=== PATIENT | male | born 1935 | race Caucasian/White ===

== ENCOUNTER 2017-01-13 07:23 | Day surgery (SDC) | payer OTHER, MEDICARE ==
[~2017-01-13 07:23] MED LIST: ceFAZolin 2 GM/DEXTROSE 100 ML IV ONE
[2017-01-13 08:24] VITALS: PULSE 54
[2017-01-13] MEDS ORDERED: LR 1,000 ML IV ONE (08:24)
--- NOTE | 2017-01-13 08:41 | PDGENHP ---
History and Physical History and Physical: HPI: 81 y/o male with metastatic esophageal CA. Planning chemotherapy/trial. Presents for port placement PMHx: EREN, elevated lipids, CAD PSHx: Umb, IHR Meds: Flonase, omeprazole, propranolol PE: Alert, NAD RRR CTA B Abd soft, NTTP A/P: metastatic esophageal CA. Plan port placement, risks/benefits reviewed, questions answered.
--- NOTE | 2017-01-13 08:53 | PDANEPAE ---
ANE History of Present Illness Mr. Savage is a 81 year old male with PMH significant for well controlled HTN on propanolol, HLD, and newly diagnosed esophageal cancer. He has had multiple anesthetics without complications. ANE Past Medical History - Cardiovascular History Hx Hypertension: No Hx Arrhythmias: Yes Hx Chest Pain: No Hx Coronary Artery / Peripheral Vascular Disease: Yes Hx CHF / Valvular Disease: No Hx Palpitations: No - Pulmonary History Hx COPD: No Hx Asthma/Reactive Airway Disease: No Hx Recent Upper Respiratory Infection: No Hx Oxygen in Use at Home: No - Neurologic History Hx Cerebrovascular Accident: No Hx Seizures: No Hx Dementia: No - Endocrine History Hx Diabetes: No - Renal History Hx Renal Disorders: No - Liver History Hx Hepatic Disorders: No - Neurological & Psychiatric Hx Hx Neurological and Psychiatric Disorders: No - Cancer History Hx Cancer: Yes - Congenital Disorder History Hx Congenital Disorders: No - GI History Hx Gastrointestinal Disorders: Yes - Chronic Pain History Chronic Pain: No ANE Review of Systems - Exercise capacity METS (RN): 6 METS ANE Patient History - Allergies Allergies/Adverse Reactions: No Known Allergies Allergy (Unverified 05/21/11 14:18) - Home Medications Home Medications: Atorvastatin Calcium 01/12/17 [Last Taken 01/12/17 21:00] Bystolic 5 mg (*) 01/12/17 [Last Taken 04/12/14] Flonase Nasal [place] 01/12/17 [Last Taken 01/11/17 08:00] Herbals/Supplements -Info Only 01/12/17 [Last Taken 01/12/17 22:00] Omeprazole 01/12/17 [Last Taken 01/12/17 05:30] Propranolol HCl 01/12/17 [Last Taken 01/12/17 10:00] - NPO status NPO Since - Liquids (Date): 01/12/17 NPO Since - Liquids (Time): 22:00 NPO Since - Solids (Date): 01/12/17 NPO Since - Solids (Time): 20:00 - Smoking Hx Smoking Status: Former smoker - Family Anes Hx Family Hx Anesthesia Complications: NEG ANE Labs/Vital Signs - Vital Signs Blood Pressure: 135/75 Heart Rate: 54 Respiratory Rate: 15 O2 Sat (%): 96 Height: 177.8 cm Weight: 86.183 kg ANE Physical Exam - Airway Neck exam: FROM Mallampati Score: Class 1 Mouth exam: normal dental/mouth exam - Pulmonary Pulmonary: no respiratory distress - Cardiovascular Cardiovascular: regular rate and rhythym - ASA Status ASA Status: II ANE Anesthesia Plan Anesthesia Plan: MAC Urgent/Emergent Case: Rajiv davis completed preop but documented later for safe timely pt care
[2017-01-13] MEDS ORDERED: PROPOFOL/EMULSION 500 MG/50 ML BOTTLE IV ONE (08:55)
[2017-01-13] MEDS ORDERED: fentaNYL 100 MCG/2 ML INJ ONE (08:55)
[2017-01-13] MEDS ORDERED: KETAMINE 100 MG/10 ML SYR ONE (08:55)
[2017-01-13] MEDS ORDERED: BUPIVACAINE 0.5% 30 ML SDV ONE (09:18)
[2017-01-13] MEDS ORDERED: LIDOCAINE 1% 300 MG/30 ML SDV ONE (09:18)
[2017-01-13] MEDS ORDERED: HEPARIN 10,000 UNIT/10 ML MDV ONE (09:26)
[2017-01-13] MEDS ORDERED: HEPARIN 1000 UNIT/1 ML MDV ONE (09:29)
[2017-01-13] MEDS ORDERED: LR 500 ML IV PRN (09:34)
[2017-01-13] MEDS ORDERED: ONDANSETRON 4 MG/2 ML VIAL IVP PRN (09:34)
[2017-01-13] MEDS ORDERED: NALOXONE HCL 0.4 MG/ML INJ IVP PRN (09:34)
[2017-01-13] MEDS ORDERED: fentaNYL 100 MCG/2 ML INJ IVP PRN (09:34)
[2017-01-13] MEDS ORDERED: MEPERIDINE 25 MG/ML SYR IVP PRN (09:34)
[2017-01-13] MEDS ORDERED: OXYCODONE/APAP 5/325 TAB PO PRN (09:34)
[2017-01-13] MEDS ORDERED: DEXAMETHASONE 4 MG/ML VIAL IVP PRN (09:34)
--- NOTE | 2017-01-13 10:01 | POSTOPPROG ---
Post Op Note Date of Operation: 01/13/17 Surgeon: Alexx Braun Anesthesiologist: Dr. Ricketts Anesthesia: IV Sedation Pre-op Diagnosis: Esophageal CA Post-op Diagnosis: same Procedure: Portacath Inf/Abcess present in the surg proc area at time of surgery?: No EBL: Minimal
--- NOTE | 2017-01-13 10:12 | POSTANESTH ---
Post Anesthetic Evaluation Cardiovascular Status: Normal, Stable Respiratory Status: Normal, Stable Level of Consciousness/Mental Status: Can Participate in Eval Pain Control: Adequate, Prn Tx Ordered Nausea/Vomiting Control: Adequate, Prn Tx Ordered Complications Possibly Related to Anesthesia: None Noted
[2017-01-13 11:26] VITALS: TEMP 97.5
[2017-01-13 12:26] VITALS: RESP 17
[2017-01-13 12:38] VITALS: BP 133/78; O2SAT 95
--- NOTE | 2017-01-13 16:57 | GOP ---
[f rep st] OPERATIVE REPORT DATE OF OPERATION: 01/13/2017 SURGEON: Chuy Braun MD ANESTHESIA: Monitored anesthetic care by Dr. Lane. PREOPERATIVE DIAGNOSIS: Esophageal cancer. POSTOPERATIVE DIAGNOSIS: Esophageal cancer. PROCEDURE PERFORMED: Port-A-Cath placement. FINDINGS: Patient had a left subclavian port placement with excellent function. ESTIMATED BLOOD LOSS: 20 cc. INDICATIONS: A 81-year-old male with a history of esophageal cancer with metastases. The patient i s planning chemotherapy. Risks and benefits of the procedure were discussed with the patient's fami ly, their questions were answered, and they wished to proceed. DESCRIPTION OF PROCEDURE: The patient was in the supine position. After the induction of adequate IV sedation, the patient was prepped and draped in the standard surgical fashion. Marcaine 0.5% was injected throughout the left chest for local anesthesia. A finder needle was used to aspirate the left subclavian vein. After dark, nonpulsatile blood was aspirated, the wire threaded without diffi culty. Placement was confirmed on fluoroscopy. Next, the pocket site was created using a transverse incision with a #15 blade. This was carried down to the subcutaneous tissue with Bovie cautery and blunt dissection. A pocket was created inferiorly in a similar fashion. The wire site was widened with a #11 blade. The catheter was then tunneled from pocket site to the wire site. The dilator a nd sheath were then placed over the wire. Placement was confirmed on fluoroscopy. The wire and dil ator were removed and the catheter was threaded through the sheath. The placement was then adjusted under fluoroscopy. The pre-flushed catheter and port were then attached after trimming the catheter . The catheter was sutured to the anterior chest wall using 2-0 Prolene in an interrupted fashion. It aspirated and flushed easily, and placement was once again confirmed under fluoroscopy. The poc ket was closed in layers using 3-0 Vicryl in an interrupted fashion for the subcutaneous tissue. The skin at all sites was closed with 4-0 Monocryl in a subcuticular stitch. The wound was dressed wit h Dermabond. The patient was then taken to the postanesthesia care unit in stable condition. COMPLICATIONS: None. DRAINS: None. /[id number]/MODL
== END 2017-01-13 12:54 | disposition home or self-care (01) ==
LOC: FSGY 07:23
PROVIDERS: ATTEND Surgery
PROC: 0JH60XZ Insertion of Tunneled Vascular Access Device into Chest Subcutaneous Tissue and Fascia, Open Approach (ICD-10-PCS; principal; 2017-01-13 08:45)
PROC: 02HV33Z Insertion of Infusion Device into Superior Vena Cava, Percutaneous Approach (ICD-10-PCS; principal; 2017-01-13 08:45)
DX: Z45.2 Encounter for adjustment and management of vascular access device (principal); C15.9 Malignant neoplasm of esophagus, unspecified; I48.91 Unspecified atrial fibrillation; I25.10 Atherosclerotic heart disease of native coronary artery without angina pectoris; G47.33 Obstructive sleep apnea (adult) (pediatric); E78.5 Hyperlipidemia, unspecified; Z85.46 Personal history of malignant neoplasm of prostate; Z80.0 Family history of malignant neoplasm of digestive organs
CPT/HCPCS: C1788; J0690; J1642; J1644; J2704; J3010

== ENCOUNTER → 2017-02-13 | Outpatient (CLI) | payer OTHER, MEDICARE | LOC: BHFA 14:30 | PROVIDERS: ATTEND Internal Medicine Cardiovascular Disease | DX: I48.91 Unspecified atrial fibrillation (principal); I48.92 Unspecified atrial flutter ==

== ENCOUNTER 2017-07-13 11:39 | Day surgery (SDC) | payer OTHER, MEDICARE ==
[2017-07-13] MEDS ORDERED: LR 1,000 ML IV ONE (11:54)
[2017-07-13] MEDS ORDERED: LIDOCAINE 1% 2 ML INJ ID PRN (11:54)
[2017-07-13] MEDS ORDERED: PROPOFOL 200 MG/20 ML VIAL ONE ×2 (12:44)
[2017-07-13] MEDS ORDERED: INDOMETHACIN 50 MG SUPP PR PRN (12:48)
--- NOTE | 2017-07-13 12:48 | PDGENHP ---
History & Physical Chief Complaint: esophageal cancer History of Present Illness: 81 year old male presents for evaluation of esophageal cancer Pertinent Past, Social, Family History: PMHx: EREN, CAD (on imaging), esophageal cancer. FaMHx: CRC Relevant Physical Exam: HEENT: anicteric. Cv; RRR +s1s2. Lungs: CTAB. Abd: soft, nt, + bs Cardiorespiratory Assessment: asa 3
--- NOTE | 2017-07-13 12:56 | PDANEPAE ---
ANE History of Present Illness here for EGD ANE Past Medical History - Cardiovascular History Hx Hypertension: No Hx Arrhythmias: Yes Hx Chest Pain: No Hx Coronary Artery / Peripheral Vascular Disease: Yes Hx CHF / Valvular Disease: No Hx Palpitations: No Cardiovascular History Comment: DYSLIPIDEMIA. ATRIAL FIB-"event w/ irregular pulse 06-25-17" so has an APRIL on Android phone to do 30 second EKG. - Pulmonary History Hx COPD: No Hx Asthma/Reactive Airway Disease: No Hx Recent Upper Respiratory Infection: No Hx Oxygen in Use at Home: No Hx Sleep Apnea: Yes Sleep Apnea Screening Result - Last Documented: Positive Pulmonary History Comment: EREN W/CPAP use for decades - Neurologic History Hx Cerebrovascular Accident: No Hx Seizures: No Hx Dementia: No Neurologic History Comment: ESSENTIAL TREMORS- on Propranolol. - Endocrine History Hx Diabetes: No - Renal History Hx Renal Disorders: No - Liver History Hx Hepatic Disorders: No - Neurological & Psychiatric Hx Hx Neurological and Psychiatric Disorders: No - Cancer History Hx Cancer: Yes Cancer History Comment: ESOPHAGUS-Stage 4 w/no known cure. PROSTATE. SKIN CA - Congenital Disorder History Hx Congenital Disorders: No - GI History Hx Gastrointestinal Disorders: Yes Gastrointestinal History Comment: esophageal CA, ACID REFLUX, constipation. - Other Health History Other Health History: Folfox chemotherapy and AFib causes fatigue. Tues Infusion -pump is removed on (every 2 wks). Chemo:tingling in extrem, feeling of cold. - Chronic Pain History Chronic Pain: No - Surgical History Prior Surgeries: 2005 PROSTATECTOMY. 2006 MOHS NOSE. 2010 HERNIA REPAIR. 2011 MOHS EAR. 2016 BAKERS CYST KNEE. EUS,endoscopies x1 '17. port placement 01-13-17 ANE Review of Systems Review of systems is: negative Review of Systems: - Exercise capacity Exercise capacity: >=4 METS METS (RN): 4 METS ANE Patient History - Allergies Allergies/Adverse Reactions: No Known Allergies Allergy (Verified 07/07/17 16:35) - Home Medications Home medications: home medication list seen and reviewed Home Medications: Atorvastatin Calcium 01/12/17 [Last Taken 07/12/17] Herbals/Supplements -Info Only 01/12/17 [Last Taken 07/07/17] Omeprazole 01/12/17 [Last Taken 07/12/17] Propranolol HCl 01/12/17 [Last Taken 01/12/17 10:00] Melatonin 07/07/17 [Last Taken 07/12/17] Sertraline HCl 07/07/17 [Last Taken 07/12/17] - NPO status NPO Status: no food or drink >8 hours NPO Since - Liquids (Date): 07/12/17 NPO Since - Liquids (Time): 02:30 NPO Since - Solids (Date): 07/12/17 NPO Since - Solids (Time): 20:00 - Anes Hx Anes Hx: no prior problems - Smoking Hx Smoking Status: Former smoker - Family Anes Hx Family Hx Anesthesia Complications: NEG ANE Labs/Vital Signs - Vital Signs Vital Signs: reviewed preoperatively; see RN documention for details Blood Pressure: 124/68 Heart Rate: 55 Respiratory Rate: 20 O2 Sat (%): 97 Height: 177.8 cm Weight: 82.1 kg ANE Physical Exam - Airway Neck exam: FROM Mallampati Score: Class 1 - Pulmonary Pulmonary: no respiratory distress - Cardiovascular Cardiovascular: regular rate and rhythym ANE Anesthesia Plan Anesthesia Plan: GA with mask
[2017-07-13] MEDS ORDERED: NS 500 ML IV SCH (13:00)
[2017-07-13 13:17] VITALS: PULSE 65
--- NOTE | 2017-07-13 13:24 | GIREPORT ---
[facility] Surgical Services - Endoscopy Department Patient Name: Hero Savage Procedure Date: 07/13/2017 12:38 PM Patient Type: Outpatient Attending MD/ ER Physician: David Omalley MD Procedure: Upper GI endoscopy Indications: Personal history of malignant esophageal neoplasm Patient Profile: 81 year old male with a history of eosphageal cancer s/p Folfox who pre sents for evaluation of response to therapy. Providers: David Omalley MD Medicines: Monitored Anesthesia Care Complications: No immediate complications. Estimated blood loss: Minimal. Description of Procedure: After obtaining informed consent, the endoscope was passed under direct vision. Throughout the procedure, the patient's blood pressure, pulse, and oxygen saturations were monitored continuously. The Endoscope was intro duced through the mouth, and advanced to the second part of duodenum. The [facility] er GI endoscopy was accomplished without difficulty. The patient tolerated th e procedure well. Findings: The Z-line was irregular and was found at the gastroesophageal junction . Biopsies were taken with a cold forceps for histology. A hiatal hernia was present. The examined duodenum was normal. Estimated Blood Loss: Estimated blood loss was minimal. Post Op Diagnosis: - Z-line irregular, at the gastroesophageal junction. Biopsied. - Hiatal hernia. - Normal examined duodenum. - No obvious recurrence of disease. Recommendation: - Discharge patient to home (with escort). - Resume previous diet. - Continue present medications. - Await pathology results. - Thank you for allowing me to participate in the care of your patient. Attending Participation: I personally performed the entire procedure. David Omalley MD David Omalley MD 07/13/2017 1:23:46 PM This report has been signed electronicallyDavid Omalley MD Number of Addenda: 0 Note Initiated On: 07/13/2017 12:38 PM [email or web address]
[2017-07-13 14:22] VITALS: BP 152/79; RESP 17; TEMP 96.8; O2SAT 97
== END 2017-07-13 14:20 | disposition home or self-care (01) ==
LOC: FSGY 11:39
PROVIDERS: ATTEND Internal Medicine Gastroenterology
PROC: 0DJ08ZZ Inspection of Upper Intestinal Tract, Via Natural or Artificial Opening Endoscopic (ICD-10-PCS; principal; 2017-07-13 13:15)
PROC: 0DB58ZX Excision of Esophagus, Via Natural or Artificial Opening Endoscopic, Diagnostic (ICD-10-PCS; principal; 2017-07-13 13:15)
DX: C15.5 Malignant neoplasm of lower third of esophagus (principal); Z87.891 Personal history of nicotine dependence; E78.5 Hyperlipidemia, unspecified; G47.33 Obstructive sleep apnea (adult) (pediatric); G25.0 Essential tremor
CPT/HCPCS: J1642; J2704

== ENCOUNTER → 2018-07-14 | Outpatient (CLI) | payer OTHER, MEDICARE | END | disposition home or self-care (01) | LOC: FIMAGING 16:40 | PROVIDERS: ATTEND Internal Medicine Hematology & Oncology | DX: R05 Cough (principal); R50.9 Fever, unspecified; R91.8 Other nonspecific abnormal finding of lung field ==

== ENCOUNTER → 2018-08-02 | Outpatient (CLI) | payer OTHER, MEDICARE | LOC: FIMAGING 11:19 | PROVIDERS: ATTEND Internal Medicine Hematology & Oncology | DX: R05 Cough (principal); R91.1 Solitary pulmonary nodule ==

== ENCOUNTER 2018-09-13 10:57 | Day surgery (SDC) | payer OTHER, MEDICARE ==
[2018-09-13] MEDS ORDERED: LR 1,000 ML IV ONE (11:14)
--- NOTE | 2018-09-13 13:26 | PDGENHP ---
History & Physical Chief Complaint: dysphagia History of Present Illness: 82 year old male presents for dysphagia. Pertinent Past, Social, Family History: PMhx; esophag cancer. See anesthesiology notes for details. Relevant Physical Exam: HEENT: non icteric. CV: RRR +s1s2. Lungs: CTAB. Abd: soft, nt, +bs Cardiorespiratory Assessment: ASA 3
--- NOTE | 2018-09-13 13:32 | PDANEPAE ---
ANE Past Medical History - Cardiovascular History Hx Hypertension: No Hx Arrhythmias: Yes Hx Chest Pain: No Hx Coronary Artery / Peripheral Vascular Disease: Yes Hx CHF / Valvular Disease: No Hx Palpitations: No Cardiovascular History Comment: DYSLIPIDEMIA. AFIB - Pulmonary History Hx COPD: No Hx Asthma/Reactive Airway Disease: No Hx Recent Upper Respiratory Infection: No Hx Oxygen in Use at Home: No Hx Sleep Apnea: Yes Sleep Apnea Screening Result - Last Documented: Positive Pulmonary History Comment: POS EREN W/CPAP. pneumonia 2 weeks ago - Neurologic History Hx Cerebrovascular Accident: No Hx Seizures: No Hx Dementia: No Neurologic History Comment: ESSENTIAL TREMORS - Endocrine History Hx Diabetes: No - Renal History Hx Renal Disorders: No - Liver History Hx Hepatic Disorders: No - Neurological & Psychiatric Hx Hx Neurological and Psychiatric Disorders: Yes Neurological / Psychiatric History Comment: essential tremor - Cancer History Hx Cancer: Yes Cancer History Comment: PROSTATE. SKIN CA. stage 1V gastroesophageal junction CA current dx - Congenital Disorder History Hx Congenital Disorders: No - GI History Hx Gastrointestinal Disorders: Yes Gastrointestinal History Comment: acid reflux. dysphagia (something stuck in throat) - Other Health History Other Health History: cataracts no tx yet. micro performance - Chronic Pain History Chronic Pain: No - Surgical History Prior Surgeries: 2005 PROSTATECTOMY. 2006 MOHS NOSE. 2010 HERNIA REPAIR. 2012 MOHS EAR. 2016 BAKERS CYST KNEE. prostatectomy 2005 ANE Review of Systems Review of Systems: - Exercise capacity METS (RN): 4 METS ANE Patient History - Allergies Allergies/Adverse Reactions: Iodinated Contrast- Oral and IV Dye Allergy (Verified 09/10/18 14:52) Other-Enter Comments - Home Medications Home Medications: Atorvastatin Calcium 01/12/17 [Last Taken 09/12/18 20:00] Herbals/Supplements -Info Only 01/12/17 [Last Taken 09/11/18] Omeprazole 01/12/17 [Last Taken 09/12/18 08:00] Propranolol HCl 01/12/17 [Last Taken 09/12/18 20:00] Melatonin 07/07/17 [Last Taken 09/11/18] Sertraline HCl 07/07/17 [Last Taken 09/12/18 08:00] Eliquis 09/10/18 [Last Taken 09/10/18] - NPO status NPO Since - Liquids (Date): 09/12/18 NPO Since - Liquids (Time): 20:00 NPO Since - Solids (Date): 09/12/18 NPO Since - Solids (Time): 20:00 - Smoking Hx Smoking Status: Former smoker - Family Anes Hx Family Hx Anesthesia Complications: none ANE Labs/Vital Signs - Vital Signs Blood Pressure: 146/71 Heart Rate: 57 Respiratory Rate: 16 O2 Sat (%): 95 Height: 177.8 cm Weight: 83.915 kg ANE Physical Exam - Airway Neck exam: FROM Mallampati Score: Class 2 Mouth exam: normal dental/mouth exam - Pulmonary Pulmonary: no respiratory distress - Cardiovascular Cardiovascular: regular rate and rhythym - ASA Status ASA Status: III ANE Anesthesia Plan Total IV Anesthesia: Yes
[2018-09-13] MEDS ORDERED: PROPOFOL/EMULSION 500 MG/50 ML BOTTLE IV ONE (13:33)
[2018-09-13] MEDS ORDERED: LIDOCAINE 2% 100 MG/5 ML SYR ONE (13:34)
[2018-09-13] MEDS ORDERED: fentaNYL 100 MCG/2 ML INJ ONE (13:34)
[2018-09-13] MEDS ORDERED: NALOXONE HCL 0.4 MG/ML INJ IVP PRN (13:52)
[2018-09-13] MEDS ORDERED: ALBUTEROL 3 ML DEYVIAL IH PRN (13:52)
[2018-09-13] MEDS ORDERED: ONDANSETRON 4 MG/2 ML VIAL IVP PRN (13:52)
[2018-09-13] MEDS ORDERED: fentaNYL 100 MCG/2 ML INJ IVP PRN (13:52)
--- NOTE | 2018-09-13 14:03 | POSTANESTH ---
Post Anesthetic Evaluation Cardiovascular Status: Similar to Pre-Op Cond Respiratory Status: Similar to Pre-op Cond. Level of Consciousness/Mental Status: Mildly Sleepy, Arousable Pain Control: Adequate, Prn Tx Ordered Nausea/Vomiting Control: Adequate, Prn Tx Ordered Complications Possibly Related to Anesthesia: None Noted
--- NOTE | 2018-09-13 14:18 | GIREPORT ---
[facility] Surgical Services - Endoscopy Department Patient Name: Hero Savage Procedure Date: 09/13/2018 1:30 PM Patient Type: Outpatient Attending / ER Physician: David Omalley MD Procedure: Upper GI endoscopy Indications: Dysphagia Patient Profile: 82 year old male with a history of esophageal cancer presents for evalu ation of dysphagia. Providers: David Omalley MD Medicines: Monitored Anesthesia Care Complications: No immediate complications. Estimated blood loss: Minimal. Description of Procedure: After obtaining informed consent, the endoscope was passed under direct vision. Throughout the procedure, the patient's blood pressure, pulse, and oxygen saturations were monitored continuously. The Enteroscope was introduced through the mouth, and advanced to the second part of duoden um. The upper GI endoscopy was accomplished without difficulty. The patient tolerated the procedure well. Findings: Diffuse mild erythema with nodular mucosa was found at the gastroesopha geal junction. Biopsies were taken with a cold forceps for histology. At this area of erythema, an intrinsic stricture was found. The strictu re was mild. A TTS dilator was passed through the scope. Dilation with a 12-13.5-15 mm balloon and a 15-16.5-18 mm balloon dilator was performed to 18 mm. Localized moderately erythematous mucosa was found in the cardia. Biops ies were taken with a cold forceps for histology. The examined duodenum was normal. Estimated Blood Loss: Estimated blood loss was minimal. Post Op Diagnosis: - Erythema and stricutre at the gastroesophageal junction. Biopsied. Di lated. - Erythematous mucosa in the cardia. Biopsied. - Normal examined duodenum. Recommendation: - Discharge patient to home (with escort). - The signs and symptoms of potential delayed complications were discus sed with the patient. - Patient has a contact number available for emergencies. - Return to normal activities tomorrow. - Resume previous diet. - Continue present medications. - Use a proton pump inhibitor PO daily. - Thank you for allowing me to participate in the care of your patient. Attending Participation: I personally performed the entire procedure. David Omalley MD David Omalley MD 09/13/2018 2:17:53 PM This report has been signed electronicallyDavid Omalley MD Number of Addenda: 0 Note Initiated On: 09/13/2018 1:30 PM [email or web address]
[2018-09-13 15:04] VITALS: BP 133/66
== END 2018-09-13 15:00 | disposition home or self-care (01) ==
LOC: FSGY 10:57
PROVIDERS: ATTEND Internal Medicine Gastroenterology
DX: C16.9 Malignant neoplasm of stomach, unspecified (principal); C16.0 Malignant neoplasm of cardia
CPT/HCPCS: 43239; 43249; C1726; J1642; J2001; J2704; J3010

== ENCOUNTER 2018-11-11 13:16 | Emergency (ER) | payer OTHER, MEDICARE ==
[2018-11-11] MEDS ORDERED: NS 1,000 ML IV ONE (14:14)
--- NOTE | 2018-11-11 14:51 | CPEKG ---
Test Reason : OPEN Blood Pressure : / mmHG Vent. Rate : 066 BPM Atrial Rate : 065 BPM P-R Int : 347 ms QRS Dur : 100 ms QT Int : 417 ms P-R-T Axes : 018 -62 041 degrees QTc Int : 437 ms Sinus rhythm Atrial premature complex Prolonged [place] interval Left anterior fascicular block Confirmed by Caroline Mittal ([id number]) on 11/11/2018 2:51:13 PM Referred By: PHYSICIAN ED Confirmed By:Caroline Mittal
--- NOTE | 2018-11-11 14:59 | EDPHY ---
H & P Stated Complaint: fainted at [facility], radiation this am, fatigued, undergoing chemo Time Seen by Provider: 11/11/18 14:16 HPI/ROS: CHIEF COMPLAINT: Syncope HISTORY OF PRESENT ILLNESS: The patient presents to the ED after syncopal episode that occurred [facility] today. The patient is currently be treated with chemotherapy and radiation for esophageal cancer. The patient reportedly did exercise earlier today and may have been dehydrated. He denies any asymmetric numbness or weakness. The patient did have an episode of vertigo earlier today which resolved. The patient denies any fever, cough or congestion. He denies any antecedent chest pain, palpitations or shortness of breath. He denies asymmetric calf pain or swelling. REVIEW OF SYSTEMS: A comprehensive 10 point review of systems is otherwise negative aside from elements mentioned in the history of present illness. Source: Patient Exam Limitations: No limitations - Personal History Current Tetanus/Diphtheria Vaccine: Yes Current Tetanus Diphtheria and Acellular Pertussis (TDAP): Yes Tetanus Vaccine Date: 2010 - Medical/Surgical History Hx Asthma: No Hx Chronic Respiratory Disease: No Hx Diabetes: No Hx Cardiac Disease: Yes Hx Renal Disease: No Hx Cirrhosis: No Hx Alcoholism: No Hx HIV/AIDS: No Hx Splenectomy or Spleen Trauma: No Other PMH: HX: HYPERLIPIDEMIA, PROSTATECTOMY, "5 PLAQUES ON HEART" - Social History Smoking Status: Former smoker - Physical Exam Exam: General Appearance: Alert, no distress Eyes: Pupils equal and round no pallor or injection ENT, Mouth: Dry mucous membranes Respiratory: There are no retractions, lungs are clear to auscultation Cardiovascular: Regular rate and rhythm Gastrointestinal: Abdomen is soft and nontender, no masses, bowel sounds normal Neurological: A&O, normal motor function, normal sensory exam, normal cranial nerves Skin: Warm and dry, no rashes Musculoskeletal: Neck is supple nontender Extremities: symmetrical, full range of motion Psychiatric: Patient is oriented X 3, there is no agitation Constitutional: Initial Vital Signs Temperature (C) 36.7 C 11/11/18 13:35 Heart Rate 72 11/11/18 13:35 Respiratory Rate 16 11/11/18 13:35 Blood Pressure 96/60 L 11/11/18 13:35 O2 Sat (%) 95 11/11/18 13:35 O2 Delivery Mode Room Air Allergies/Adverse Reactions: Iodinated Contrast- Oral and IV Dye Allergy (Verified 09/10/18 14:52) Other-Enter Comments Home Medications: Medication Instructions Recorded Atorvastatin Calcium 01/12/17 Herbals/Supplements -Info Only 01/12/17 Omeprazole 01/12/17 Propranolol HCl 01/12/17 Melatonin 07/07/17 Sertraline HCl 07/07/17 Eliquis 09/10/18 Medical Decision Making - Diagnostics EKG Interpretation: EKG: Complete interpretation has been separately recorded in the [facility] archive. Summary impression: First-degree AV block, Sinus rhythm, rate 66, no ST segment elevation or depression noted ED Course/Re-evaluation: The patient presents the ED after a likely vasovagal episode precipitated by dehydration earlier today. The patient arrives and has a normal neurologic examination. He has no evidence of a stroke or history suggestive of stroke on my evaluation. The patient had an IV established. He received a L of normal saline. His EKG demonstrates no evidence of a critical arrhythmia. The patient's laboratory studies are largely unremarkable. The patient has no evidence of a neutropenic fever, myocardial infarction, critical electrolyte derangement or other explanation for worrisome syncope. The patient was observed in the emergency department underwent serial examinations over a 2 hr period. At 4:00 p.m. He is ambulatory without acute complaints. I reviewed the results of the patient's workup with him in the emergency department. He is comfortable going home at this point time. He is discharged home with customary aftercare instructions and return precautions. Differential Diagnosis: Differential diagnosis considered includes vasovagal episode, dehydration, metabolic abnormality, arrhythmia, renal failure, neutropenic fever - Data Points Laboratory Results: Laboratory Results 11/11/18 15:00 11/11/18 15:00 11/11/18 11/11/18 11/11/18 15:07 15:00 15:00 WBC 2.78 10^3/uL L 10^3/uL (3.80-9.50) RBC 3.15 10^6/uL L 10^6/uL (4.40-6.38) Hgb 10.6 g/dL L g/dL (13.7-17.5) Hct 30.6 % L % (40.0-51.0) MCV 97.1 fL fL (81.5-99.8) MCH 33.7 pg pg (27.9-34.1) MCHC 34.6 g/dL g/dL (32.4-36.7) RDW 13.5 % % (11.5-15.2) Plt Count 136 10^3/uL L 10^3/uL (150-400) MPV 11.3 fL fL (8.7-11.7) Neut % (Auto) Pending Lymph % (Auto) Pending [place] % (Auto) Pending Eos % (Auto) Pending Baso % (Auto) Pending Nucleat RBC Rel Count Pending Absolute Neuts (auto) Pending Absolute Lymphs (auto) Pending Absolute Monos (auto) Pending Absolute Eos (auto) Pending Absolute Basos (auto) Pending Absolute Nucleated RBC Pending Immature Gran % Pending Immature Gran # Pending Sodium 131 mEq/L L mEq/L (135-145) Potassium 4.3 mEq/L mEq/L (3.5-5.2) Chloride 101 mEq/L mEq/L (97-110) Carbon Dioxide 25 mEq/l mEq/l (22-31) Anion Gap 5 mEq/L L mEq/L (6-14) BUN 16 mg/dL mg/dL (7-23) Creatinine 0.8 mg/dL mg/dL (0.7-1.3) Estimated GFR > 60 Glucose 100 mg/dL mg/dL (70-100) Calcium 8.3 mg/dL L mg/dL (8.5-10.4) POC Troponin I 0.00 ng/mL ng/mL (0.00-0.08) Medications Given: Discontinued Medications Sodium Chloride (Ns) 1,000 mls @ 0 mls/hr IV EDNOW ONE; Wide Open PRN Reason: Protocol Stop: 11/11/18 14:15 Last Admin: 11/11/18 15:08 Dose: 1,000 mls Point of Care Test Results: Chemistry 11/11/18 15:07 POC Troponin I 0.00 ng/mL ng/mL (0.00-0.08) Departure - Departure Disposition: Home, Routine, Self-Care Clinical Impression: Vasovagal episode Condition: Good Instructions: Syncope (ED) Additional Instructions: 1. Please return to the emergency department for any chest pain, numbness, weakness, severe headache, shortness of breath, recurrent passing out, fever or other concerns. 2. Please follow up with your regular physician as scheduled. 3. Your workup in the emergency department today demonstrates no evidence of a obvious abnormality. I do believe the dehydration likely contributed to your symptoms today. Referrals: Marlene Petersen MD [Primary Care Provider] - As per Instructions
[2018-11-11 15:30] LABS: PLATELET COUNT 136 10^3/uL (150-400)
[2018-11-11 16:19] VITALS: BP 124/77
== END 2018-11-11 16:29 | disposition home or self-care (01) ==
DX: R55 Syncope and collapse (principal); E86.9 Volume depletion, unspecified; C15.9 Malignant neoplasm of esophagus, unspecified; E78.5 Hyperlipidemia, unspecified
CPT/HCPCS: 84484-ER

== ENCOUNTER → 2018-11-16 | Outpatient (CLI) | payer OTHER, MEDICARE | LOC: EMCIMAGING 14:36 | PROVIDERS: ATTEND Nurse Practitioner | DX: Z13.89 Encounter for screening for other disorder (principal); R55 Syncope and collapse; C15.9 Malignant neoplasm of esophagus, unspecified | CPT/HCPCS: 70553-PN ==